=== PATIENT | male | born 1970 | race Caucasian/White ===

== ENCOUNTER 2023-08-01 15:04 | Emergency (ER) | payer OTHER ==
--- NOTE | 2023-08-01 15:58 | RAD REPORT ---
EXAM DESCRIPTION: RAD - Pelvis - 08/01/2023 3:52 pm CLINICAL HISTORY: PAIN COMPARISON: <Comparisons> FINDINGS/IMPRESSION: No acute fracture. No malalignment. No significant focal degenerative changes. Both hips appear located on the single views.
--- NOTE | 2023-08-01 16:02 | RAD REPORT ---
EXAM DESCRIPTION: RAD - Chest Single View - 08/01/2023 3:52 pm CLINICAL HISTORY: CHEST PAIN COMPARISON: <Comparisons> FINDINGS: Lines: None. Lungs: No evidence of edema or pneumonia. Pleural: No significant pleural effusions or pneumothorax. Cardiac: The heart size is within normal limits. Mediastinum: Within normal limits. Bones: No acute fractures. Other: None IMPRESSION: No acute cardiopulmonary disease.
--- NOTE | 2023-08-01 16:17 | EDPHYS ---
Physician Documentation [facility] Name: Vignesh Louise Age: 53 yrs Sex: Male : 1970 Arrival Date: 08/01/2023 Time: 15:04 Bed 12 Private MD: ED Physician Moise Rosenberg HPI: 08/01 15:16 This 53 yrs old Male presents to ER via Ambulatory with complaints of Fall ec2 Injury. 15:16 Patient arrives today for evaluation of chest wall pain and left hip pain. States that ec2 he was working on cutting trees and subsequently fell off a ladder. States that he was struck in the mid chest and left hip. Patient reports no LOC, no head pain, no neck pain, not on blood thinners. Patient reports no abdominal pain, no other concerns. Historical: - Allergies: 15:12 No Known Allergies; mb9 - Home Meds: 15:12 None [Active]; mb9 - PMHx: 15:12 None; mb9 - PSHx: 15:12 None; mb9 - Immunization history:: Adult Immunizations up to date. - Social history:: Smoking status: Patient denies any tobacco usage or history of. ROS: 15:16 Constitutional: as per hpi ec2 Exam: 15:16 Constitutional: GEN: No acute distress HEENT: -Head: atraumatic -Eyes: EOMI CV: ec2 regular rate LUNGS: no respiratory distress ABD: non-tender SKIN: no wounds appreciated MSK: No C/T/L spine deformities. Chest wall: Ecchymosis noted to left anterior chest, no crepitus appreciated, no deformities RUE w/o trauma LUE w/o trauma RLE w/o trauma LLE w/o trauma NEURO: moves all extremities equally, GCS 15 (E4, V5, M6) Vital Signs: 15:10 BP 138 / 91; Pulse 67; Resp 18; Temp 98; Pulse Ox 99% on R/A; Weight 90.72 kg; Height 5 mb9 ft. 8 in. ; Pain 6/10; 16:37 BP 128 / 87; Pulse 71; Resp 17; Pulse Ox 99% on R/A; me1 15:10 Body Mass Index 30.41 (90.72 kg, 172.72 cm) mb9 15:10 Pain Scale: Adult mb9 MDM: 15:10 Patient medically screened. ec2 15:16 Data reviewed: vital signs. ED course: Patient arrives today for evaluation after chest ec2 wall trauma. Examination remarkable for well-appearing nontoxic individual is otherwise in no acute distress with no significant evidence of head trauma, does have chest wall ecchymosis, no left hip TTP. Will obtain radiographs of the pelvis as well as the chest wall. Currently considering soft tissue contusion, bony contusion, bony fracture.. 16:06 ED course: Chest x-ray and pelvis x-ray without bony fracture. Will discharge home, ec2 instructed in [id number] medications. Return precautions given.. 08/01 15:10 Order name: XRAY Chest (1 view); Complete Time: 16:06 ec2 08/01 15:16 Order name: Pelvis XRAY; Complete Time: 16:00 ec2 Administered Medications: No medications were administered Disposition Summary: 08/01/23 16:16 Discharge Ordered Notes: Location: Home ec2 Condition: Stable ec2 Diagnosis - Chest Wall Contusion ec2 Discharge Instructions: - Discharge Summary Sheet ec2 - Chest Contusion, Adult ec2 Forms: - Medication Reconciliation Form ec2 - Thank You Letter ec2 - Antibiotic Education ec2 - Prescription Opioid Use ec2 - Patient Portal Instructions ec2 - Leadership Thank You Letter ec2 Prescriptions: - methocarbamol 500 mg Oral tablet - take 3 tablets ORAL route 4 times per day for 3 days; 20 tablet; Refills: 0, ec2 Product Selection Permitted Signatures: Dispatcher [employer] Brianna Patel RN RN mb9 Moise Rosenberg MD MD ec2 Corrections: (The following items were deleted from the chart) 15:12 15:10 Cardiac monitoring ordered. ec2 mb9 15:12 15:10 EKG - Nurse/Tech ordered. ec2 mb9 15:12 15:10 IV Saline Lock ordered. ec2 mb9 15:12 15:10 Labs collected and sent ordered. ec2 mb9 15:14 15:10 Oxygen Per Protocol ordered. ec2 mb9 15:14 15:10 O2 Sat Monitoring ordered. ec2 mb9 15:17 15:11 BASIC METABOLIC PANEL+C.LAB.BRZ ordered. EDMS EDMS 15:17 15:11 CBC+H.LAB.BRZ ordered. EDMS EDMS 15:17 15:11 Troponin High Sensitivity+C.LAB.BRZ ordered. EDMS EDMS
--- NOTE | 2023-08-01 16:17 | ER ---
Nurse's Notes [facility] Name: Vignesh Louise Age: 53 yrs Sex: Male : 1970 Arrival Date: 08/01/2023 Time: 15:04 Bed 12 Private MD: Diagnosis: Chest Wall Contusion Presentation: 08/01 15:10 Chief complaint: Patient states: "Around noon, I was on a ladder cutting tree limbs mb9 down and I fell about 5-6 ft. I landed on the log and hit my left hip." Pt denies LOC, hitting head, and does not take blood thinners. Coronavirus screen: Vaccine status: Patient reports being unvaccinated. Ebola Screen: No symptoms or risks identified at this time. Initial Sepsis Screen: Does the patient meet any 2 criteria? No. Patient's initial sepsis screen is negative. Does the patient have a suspected source of infection? No. Patient's initial sepsis screen is negative. Risk Assessment: Do you want to hurt yourself or someone else? Patient reports no desire to harm self or others. Onset of symptoms was August 01, 2023. 15:10 Method Of Arrival: Ambulatory mb9 15:10 Acuity: CORDELL 4 mb9 Triage Assessment: 15:13 General: Appears in no apparent distress. Behavior is calm, cooperative. Pain: mb9 Complains of pain in chest. EENT: No signs and/or symptoms were reported regarding the EENT system. Neuro: Gillespie Agitation-Sedation Scale (RASS): 0 - Alert and Calm Level of Consciousness is awake, alert, obeys commands, Oriented to person, place, time, situation, Appropriate for age. Cardiovascular: Denies chest pain. Respiratory: Airway is patent Respiratory effort is even, unlabored, Respiratory pattern is regular, symmetrical. GI: No signs and/or symptoms were reported involving the gastrointestinal system. : No signs and/or symptoms were reported regarding the genitourinary system. Derm: Bruising that is on chest. Musculoskeletal: Range of motion: intact in all extremities. Historical: - Allergies: 15:12 No Known Allergies; mb9 - Home Meds: 15:12 None [Active]; mb9 - PMHx: 15:12 None; mb9 - PSHx: 15:12 None; mb9 - Immunization history:: Adult Immunizations up to date. - Social history:: Smoking status: Patient denies any tobacco usage or history of. Screenin:17 [facility] ED Fall Risk Assessment (Adult) History of falling in the last 3 months, mb9 including since admission No falls in past 3 months (0 pts) Confusion or Disorientation No (0 pts) Intoxicated or Sedated No (0 pts) Impaired Gait No (0 pts) Mobility Assist Device Used No (0 pt) Altered Elimination No (0 pt) Score/Fall Risk Level 0 - 2 = Low Risk Oriented to surroundings, Maintained a safe environment, Educated pt \\T\\ family on fall prevention, incl call for assistance when getting out of bed. Abuse screen: Denies threats or abuse. Nutritional screening: No deficits noted. Tuberculosis screening: No symptoms or risk factors identified. Assessment: 16:37 General: See triage assessment. . Pain: Complains of pain in chest Pain does not me1 radiate. Pain currently is 3 out of 10 on a pain scale. Quality of pain is described as tender, Pain began suddenly, Is continuous. Vital Signs: 15:10 BP 138 / 91; Pulse 67; Resp 18; Temp 98; Pulse Ox 99% on R/A; Weight 90.72 kg; Height 5 mb9 ft. 8 in. ; Pain 6/10; 16:37 BP 128 / 87; Pulse 71; Resp 17; Pulse Ox 99% on R/A; me1 15:10 Body Mass Index 30.41 (90.72 kg, 172.72 cm) mb9 15:10 Pain Scale: Adult mb9 ED Course: 15:09 Patient arrived in ED. mg5 15:09 Moise Rosenberg MD is Attending Physician. ec2 15:12 Triage completed. mb9 15:12 Arm band placed on. mb9 15:17 Bed in low position. Call light in reach. Side rails up X 1. Client placed on mb9 continuous cardiac and pulse oximetry monitoring. NIBP monitoring applied. 15:17 No provider procedures requiring assistance completed. Patient did not have IV access mb9 during this emergency room visit. Patient maintains SpO2 saturation greater than 95% on room air. 15:38 Wanda Larry, RN is Primary Nurse. me1 15:54 XRAY Chest (1 view) In Process Unspecified. EDMS 15:54 Pelvis XRAY In Process Unspecified. EDMS 16:37 Provided Education on: POC. Verbalized understanding. . me1 Administered Medications: No medications were administered Medication: 15:17 VIS not applicable for this client. mb9 Outcome: 16:16 Discharge ordered by . ec2 16:38 Discharged to home ambulatory, with significant other, me1 16:38 Condition: stable 16:38 Discharge instructions given to patient, significant other, Instructed on discharge instructions, follow up and referral plans. medication usage, Demonstrated understanding of instructions, follow-up care, medications, Prescriptions given X 1, 16:38 Patient left the ED. me1 Signatures: Dispatcher [employer] EDAZ Brianna Delatorre RN RN mb9 Wanda Larry RN RN me1 Patrica Almazan mg5 Moise Rosenberg MD MD 2
[2023-08-01 17:23] VITALS: TEMP 98; O2SAT 99
[2023-08-01 17:24] VITALS: BP 128/87
== END 2023-08-01 16:38 | disposition home or self-care (01) ==
LOC: ER 15:04
DX: S20.212A Contusion of left front wall of thorax, initial encounter (principal); M25.552 Pain in left hip
CPT/HCPCS: 71045; 72170; 99284